=== PATIENT | female | born 1950 | race Hispanic/Latino ===

== ENCOUNTER 2020-04-06 20:57 | Emergency (ER) | payer OTHER ==
[2020-04-06 21:59] LABS: Absolute Lymphocytes (CBC) 2.2 K/uL (0.7-4.9); Basophils % 0.6 % (0-1.3); Hematocrit 34.2 % (36.0-45.0); Lymphocytes % 22.4 % (15.3-44.8); MPV 8.2 fL (7.6-11.3)
[2020-04-06] MEDS ORDERED: MORPHINE 4 MG/ML SYR ONE (22:08)
[2020-04-06] MEDS ORDERED: ONDANSETRON 4 MG/2 ML VIAL ONE (22:08)
[2020-04-06 22:14] LABS: Urine Bacteria <20 /HPF (<20); Urine Culture Reflex Order NOT NEEDED; Urine RBC <5 /HPF (NONE SEEN)
[2020-04-06] MEDS ORDERED: FENTANYL CITR 100 MCG/2 ML ONE (22:15)
[2020-04-06 22:17] LABS: Urine Blood TRACE (NEG); Urine Glucose NEGATIVE (NEG); Urine Protein TRACE (NEG); Urine Specific Gravity 1.015 (1.005-1.030)
[2020-04-06 22:17] LABS: ALT/SGPT 12 U/L (12-78); AST/SGOT 9 U/L (15-37); Albumin 3.7 g/dL (3.4-5.0); Alkaline Phosphatase 76 U/L (45-117); BUN Blood Urea Nitrogen 20 mg/dL (7-18); Bicarbonate 26 mmol/L (21-32); Bilirubin Direct < 0.1 mg/dL (0-0.2); Bilirubin Total 0.3 mg/dL (0.2-1.0); Glucose Level 154 mg/dL (74-106); Lipase 203 U/L (73-393); Potassium 3.7 mmol/L (3.5-5.1); Protein, Total 7.6 g/dL (6.4-8.2); Sodium Level 139 mmol/L (136-145)
[2020-04-06] MEDS ORDERED: NA CHLORIDE 0.9% 500 ML ONE (22:17)
[2020-04-06] MEDS ORDERED: CIPROFLOXACIN HCL 500 MG TAB ONE (23:28)
[2020-04-06] MEDS ORDERED: METRONIDAZOLE 500mg IVPB 500 MG/100 ML BAG IV ONE (23:28)
--- NOTE | 2020-04-06 23:50 | ER ---
Nurse's Notes [facility] Name: Anum Burr Age: 70 yrs Sex: Female : 1950 Arrival Date: 04/06/2020 Time: 21:03 Bed 20 Private MD: Mindy Flores Diagnosis: Diverticulitis of large intestine without perforation or abscess without bleeding Presentation: 04/06 21:15 Chief complaint: Patient states: Suprapubic and LLQ pain since Sunday, pain radiates ca1 to the L leg. Pain increases with repositioning and urination. Denies injury. Denies burning with urination, urinary frequency and urgency. Denies N/V/D. Coronavirus screen: Client denies travel out of the [place] in the last 14 days. At this time, the client does not indicate any symptoms associated with coronavirus-19. Ebola Screen: Patient negative for fever greater than or equal to 101.5 degrees Fahrenheit, and additional compatible Ebola Virus Disease symptoms Patient denies exposure to infectious person. Patient denies travel to an Ebola-affected area in the 21 days before illness onset. No symptoms or risks identified at this time. Initial Sepsis Screen: Does the patient meet any 2 criteria? No. Patient's initial sepsis screen is negative. Does the patient have a suspected source of infection? No. Patient's initial sepsis screen is negative. Risk Assessment: Do you want to hurt yourself or someone else? Patient reports no desire to harm self or others. Onset of symptoms was April 06, 2020. 21:15 Method Of Arrival: Ambulatory ca1 21:15 Acuity: SRINIVASA 3 ca1 Historical: - Allergies: 21:18 PENICILLINS; ca1 - PMHx: 21:18 Diabetes - NIDDM; High Cholesterol; Hypertension; ca1 - PSHx: 21:18 Cholecystectomy; ca1 - Immunization history:: Adult Immunizations up to date. - Social history:: Smoking status: Patient denies any tobacco usage or history of. Screenin:19 Abuse screen: Denies threats or abuse. Nutritional screening: No deficits noted. fu Tuberculosis screening: No symptoms or risk factors identified. Fall Risk None identified. Assessment: 21:25 General: Appears in no apparent distress. Behavior is calm, cooperative, appropriate fu for age, Reports LLQ pain started 5 days ago. Pain: Complains of pain in left lower quadrant Pain radiates to left leg Pain currently is 10 out of 10 on a pain scale. Quality of pain is described as aching, Pain began 5 days ago Alleviated by Aggravated by walking. Neuro: Level of Consciousness is awake, alert, obeys commands, Oriented to person, place, time, situation, Moves all extremities. Gait is steady, Speech is normal, Facial symmetry appears normal. Cardiovascular: Denies chest pain, nausea, vomiting. Respiratory: Airway is patent Denies cough, shortness of breath. GI: Reports lower abdominal pain, Patient currently denies diarrhea, nausea, vomiting. : Reports frequency and burning sensation with urination. EENT: No signs and/or symptoms were reported regarding the EENT system. Derm: No signs and/or symptoms reported regarding the dermatologic system. Musculoskeletal: No signs and/or symptoms reported regarding the musculoskeletal system. 22:10 Reassessment: Patient and/or family updated on plan of care and expected duration. Pain fu level reassessed. patient refusing for Morphine IV stated makes her dizzy and did not work for her. PCP notified. 23:03 Reassessment: Patient and/or family updated on plan of care and expected duration. Pain fu level reassessed. Patient is alert, oriented x 3, equal unlabored respirations, skin warm/dry/pink. Patient denies pain at this time. Patient states feeling better. 23:25 Reassessment: Patient and/or family updated on plan of care and expected duration. Pain fu level reassessed. Patient is alert, oriented x 3, equal unlabored respirations, skin warm/dry/pink. assisted to restroom. 23:49 Reassessment: PCP patient's room, talking to the patient. fu Vital Signs: 21:15 Weight 67.13 kg (R); Height 4 ft. 9 in. (144.78 cm) (R); Pain 10/10; ca1 21:29 BP 179 / 61; Pulse 57; Resp 17; Temp 97.(TE); Pulse Ox 98% on R/A; Pain 10/10; fu 22:00 BP 179 / 63; Pulse 58; Resp 18; Pulse Ox 100% on R/A; Pain 10/10; fu 23:01 BP 158 / 52; Pulse 60; Resp 16; Pulse Ox 96% on R/A; Pain 0/10; fu 23:45 BP 155 / 2; Pulse 56; Resp 16; Temp 98.3; Pulse Ox 99% on R/A; Pain 0/10; fu 21:15 Body Mass Index 32.03 (67.13 kg, 144.78 cm) ca1 ED Course: 21:03 Patient arrived in ED. am2 21:04 Mindy Flores MD is Private Physician. am2 21:08 Darnell Galarza PA is PHCP. cp 21:08 Shahbaz Engle MD is Attending Physician. cp 21:09 Harris Piper, KAREEN is Primary Nurse. fu 21:17 Triage completed. ca1 21:18 Arm band placed on right wrist. ca1 21:40 Initial lab(s) drawn, by me, sent to lab. Inserted saline lock: 20 gauge in right fu antecubital area, using aseptic technique. Blood collected. 21:46 Lipase Sent. fu 21:46 Hepatic Function Sent. fu 21:46 CBC with Diff Sent. fu 21:46 Basic Metabolic Panel Sent. fu 21:46 Urine Microscopic Only Sent. fu 22:44 CT Abd/Pelvis - IV Contrast Only In Process Unspecified. EDMS 22:44 Patient has correct armband on for positive identification. Placed in gown. Bed in low fu position. Call light in reach. Side rails up X 1. 22:52 Pulse ox on. NIBP on. fu 23:25 provided with pillow. fu 04/07 00:00 No provider procedures requiring assistance completed. fu 00:04 IV discontinued, bleeding controlled, Pressure dressing applied. fu Administered Medications: 04/06 22:01 Not Given (Patient Refused): morphine 4 mg IVP once; RASS on ADMIN: Combtv4, Very cp Agttd3, Agttd2, Rstlss1, AlertClm0, Drwsy-1, Lt Sdtn-2, Mod Sdtn-3, Dp Sdtn-4, UnArsble-5 22:02 Drug: NS 0.9% 500 ml Route: IV; Rate: 500 ml/hr; Site: right antecubital; fu 23:24 Follow up: Response: No adverse reaction; IV Intake: 500ml fu 22:05 Drug: Zofran (Ondansetron) 4 mg Route: IVP; Infused Over: 2 mins; Site: right fu antecubital; 22:42 Follow up: Response: No adverse reaction fu 22:12 Drug: fentaNYL (PF) 25 mcg Route: IVP; Site: right antecubital; fu 22:42 Follow up: Response: Pain is decreased fu 23:20 Drug: Ciprofloxacin 500 mg Route: PO; fu 23:54 Follow up: Response: No adverse reaction fu 23:23 Drug: metroNIDAZOLE 500 mg Volume: 100 ml; Route: IVPB; Infused Over: 30 mins; Site: fu right antecubital; 23:54 Follow up: Response: No adverse reaction fu Intake: 23:24 IV: 500ml; Total: 500ml. fu Outcome: 23:49 Discharge ordered by MD. lane 04/07 00:06 Discharged to home ambulatory. fu Condition: good Discharge instructions given to patient, Instructed on discharge instructions, follow up and referral plans. Demonstrated understanding of instructions, follow-up care, Prescriptions given X 4. 00:07 Patient left the ED. fu Signatures: Dispatcher [employer] EDMS Darnell Galarza PA PA cp Moreno, Amanda 2 Harris Piper, RN RN fu Dominique Hernandez RN RN ca1
--- NOTE | 2020-04-06 23:50 | EDPHYS ---
Physician Documentation [facility] Name: Anum Burr Age: 70 yrs Sex: Female : 1950 Arrival Date: 04/06/2020 Time: 21:03 Bed 20 Private MD: Mindy Flores ED Physician Shahbaz Engle HPI: 04/06 21:30 This 70 yrs old Female presents to ER via Ambulatory with complaints of cp Abdominal Pain - left side. Historical: - Allergies: 21:18 PENICILLINS; ca1 - PMHx: 21:18 Diabetes - NIDDM; High Cholesterol; Hypertension; ca1 - PSHx: 21:18 Cholecystectomy; ca1 - Immunization history:: Adult Immunizations up to date. - Social history:: Smoking status: Patient denies any tobacco usage or history of. ROS: 21:49 Eyes: Negative for injury, pain, redness, and discharge. cp 21:49 Constitutional: Negative for body aches, fever, poor PO intake. 21:49 ENT: Negative for ear pain, sore throat, difficulty swallowing, difficulty handling secretions. 21:49 Cardiovascular: Negative for chest pain. 21:49 Respiratory: Negative for cough, shortness of breath, wheezing. 21:49 Abdomen/GI: Positive for abdominal pain, Negative for vomiting, diarrhea, constipation, anorexia, black/tarry stool, rectal bleeding. 21:49 Back: Negative for radiated pain. 21:49 : Negative for urinary symptoms. 21:49 All other systems are negative. Exam: 21:50 Head/Face: Normocephalic, atraumatic. cp 21:50 Constitutional: The patient appears in no acute distress, alert, awake, non-diaphoretic, non-toxic, well developed, well nourished. 21:50 Eyes: Periorbital structures: appear normal, Conjunctiva: normal, no exudate, no injection, Sclera: no appreciated abnormality, Lids and lashes: appear normal, bilaterally. 21:50 ENT: External ear(s): are unremarkable, Nose: is normal, Posterior pharynx: Airway: no evidence of obstruction, patent. 21:50 Chest/axilla: Inspection: normal. 21:50 Cardiovascular: Rate: bradycardic, Edema: is not appreciated, JVD: is not appreciated. 21:50 Respiratory: the patient does not display signs of respiratory distress, Respirations: normal, no use of accessory muscles, no retractions, labored breathing, is not present, Breath sounds: are clear throughout, no decreased breath sounds. 21:50 Abdomen/GI: Inspection: abdomen appears normal, Bowel sounds: active, all quadrants, Palpation: soft, in all quadrants, moderate abdominal tenderness, in the left upper quadrant and left lower quadrant, rebound tenderness, is not appreciated, voluntary guarding, is elicited in the left upper quadrant and left lower quadrant. 21:50 Back: pain, is absent. Vital Signs: 21:15 Weight 67.13 kg (R); Height 4 ft. 9 in. (144.78 cm) (R); Pain 10/10; ca1 21:29 BP 179 / 61; Pulse 57; Resp 17; Temp 97.(TE); Pulse Ox 98% on R/A; Pain 10/10; fu 22:00 BP 179 / 63; Pulse 58; Resp 18; Pulse Ox 100% on R/A; Pain 10/10; fu 23:01 BP 158 / 52; Pulse 60; Resp 16; Pulse Ox 96% on R/A; Pain 0/10; fu 23:45 BP 155 / 2; Pulse 56; Resp 16; Temp 98.3; Pulse Ox 99% on R/A; Pain 0/10; fu 21:15 Body Mass Index 32.03 (67.13 kg, 144.78 cm) ca1 MDM: 21:22 Patient medically screened. cp 21:53 Differential diagnosis: diverticulitis, GI Bleed, non-specific abd pain, cp Pyelonephritis, Ureterolithiasis, urinary tract infection. 23:47 Data reviewed: vital signs, nurses notes, lab test result(s), radiologic studies, CT cp scan. Counseling: I had a detailed discussion with the patient and/or guardian regarding: the historical points, exam findings, and any diagnostic results supporting the discharge/admit diagnosis, lab results, radiology results, the need for outpatient follow up, an room attendant, to return to the emergency department if symptoms worsen or persist or if there are any questions or concerns that arise at home. Response to treatment: the patient's symptoms have markedly improved after treatment, Pain markedly improved and patient tolerating po fluids. Will discharge to home for continued monitoring. 04/06 21:30 Order name: Basic Metabolic Panel; Complete Time: 22:46 cp 04/06 22:47 Interpretation: Normal except: GLUC 154; BUN 20; GFR 53. cp 04/06 21:30 Order name: CBC with Diff; Complete Time: 22:46 cp 04/06 22:47 Interpretation: Normal except: HGB 11.9; HCT 34.2. cp 04/06 21:30 Order name: Hepatic Function; Complete Time: 22:46 cp 04/06 21:30 Order name: Lipase; Complete Time: 22:46 cp 04/06 21:30 Order name: Urine Microscopic Only; Complete Time: 22:46 cp 04/06 21:59 Order name: Urine Dipstick--Ancillary (enter results); Complete Time: 22:46 mw2 04/06 21:30 Order name: IV Saline Lock; Complete Time: 21:46 cp 04/06 21:30 Order name: CT Abd/Pelvis - IV Contrast Only cp 04/06 21:30 Order name: Labs collected and sent; Complete Time: 23:54 cp 04/06 21:30 Order name: Urine Dipstick-Ancillary (obtain specimen); Complete Time: 21:46 cp 04/06 21:30 Order name: NPO; Complete Time: 23:11 cp 04/06 23:11 Order name: PO challenge; Complete Time: 23:23 cp Administered Medications: 22:01 Not Given (Patient Refused): morphine 4 mg IVP once; RASS on ADMIN: Combtv4, Very cp Agttd3, Agttd2, Rstlss1, AlertClm0, Drwsy-1, Lt Sdtn-2, Mod Sdtn-3, Dp Sdtn-4, UnArsble-5 22:02 Drug: NS 0.9% 500 ml Route: IV; Rate: 500 ml/hr; Site: right antecubital; fu 23:24 Follow up: Response: No adverse reaction; IV Intake: 500ml fu 22:05 Drug: Zofran (Ondansetron) 4 mg Route: IVP; Infused Over: 2 mins; Site: right fu antecubital; 22:42 Follow up: Response: No adverse reaction fu 22:12 Drug: fentaNYL (PF) 25 mcg Route: IVP; Site: right antecubital; fu 22:42 Follow up: Response: Pain is decreased fu 23:20 Drug: Ciprofloxacin 500 mg Route: PO; fu 23:54 Follow up: Response: No adverse reaction fu 23:23 Drug: metroNIDAZOLE 500 mg Volume: 100 ml; Route: IVPB; Infused Over: 30 mins; Site: right antecubital; 23:54 Follow up: Response: No adverse reaction fu Disposition: 04/07 00:09 Co-signature as Attending Physician, Shahbaz Engle MD. rn Disposition: 04/06/20 23:49 Discharged to Home. Impression: Diverticulitis of large intestine without perforation or abscess without bleeding. - Condition is Stable. - Discharge Instructions: High-Fiber Diet, Diverticulitis. - Prescriptions for Zofran 4 mg Oral Tablet - take 1 tablet by ORAL route every 12 hours As needed; 20 tablet. Cipro 500 mg Oral Tablet - take 1 tablet by ORAL route every 12 hours for 7 days; 14 tablet. Metronidazole 500 mg Oral Tablet - take 1 tablet by ORAL route every 8 hours; 30 tablet. Tramadol 50 mg Oral Tablet - take 1 tablet by ORAL route every 8 hours as needed; 12 tablet. - Medication Reconciliation Form, Thank You Letter, Antibiotic Education, Prescription Opioid Use form. - Follow up: Private Physician; When: 1 - 2 days; Reason: Recheck today's complaints. - Problem is new. - Symptoms have improved. Signatures: Dispatcher [employer] EDShahbaz Thurman MD MD rn Page, Corey, PA PA cp Umadhay, Felix, RN RN fu Acob, Cheryl, RN RN [facility] Corrections: (The following items were deleted from the chart) 00:07 04/06 23:49 04/06/2020 23:49 Discharged to Home. Impression: Diverticulitis of large fu intestine without perforation or abscess without bleeding. Condition is Stable. Forms are Medication Reconciliation Form, Thank You Letter, Antibiotic Education, Prescription Opioid Use. Follow up: Private Physician; When: 1 - 2 days; Reason: Recheck today's complaints. Problem is new. Symptoms have improved. cp
[2020-04-07 00:45] VITALS: BP 155/2; TEMP 98.3; O2SAT 99
--- NOTE | 2020-04-07 11:05 | RAD REPORT ---
EXAM DESCRIPTION: CT ABDOMEN AND PELVIS WITH CONTRAST CLINICAL HISTORY: Left side abdominal pain COMPARISON: 07/16/2017 TECHNIQUE: CT of the abdomen and pelvis performed following IV administration of iodinated contras t. FINDINGS: Lung Bases: The visualized lung bases are clear. Bones: Multilevel degenerative endplate spondylosis. Abdomen: Liver: The liver has normal size and density. No intrahepatic biliary dilatation. Gallbladder: Prior cholecystectomy. Spleen, Pancreas, and Adrenal Glands: The spleen, pancreas, and adrenal glands are unremarkable. Kidneys: No hydronephrosis or obstructing calculus. Vasculature: Aortoiliac atherosclerosis. IVC is unremarkable. The portal vein is patent. The proxim al visceral and renal arteries are patent. Stomach: Small hiatal hernia. Other: No free intraperitoneal air. No free fluid or lymphadenopathy. Pelvis: Bladder: Urinary bladder is unremarkable. Bowel: No dilated loops of large or small bowel. Scattered diverticula colon. Inflammatory changes centered on a diverticula of the proximal sigmoid colon with short segment wall thickening. No well-c ircumscribed pericolic fluid collection. Appendix: Normal appendix. Pelvis: Uterus is not enlarged. IMPRESSION: 1. Findings compatible with acute uncomplicated diverticulitis of the sigmoid colon. 2. Small hiatal hernia. This exam was performed according to our departmental dose-optimization program, which includes autom ated exposure control, adjustment of the mA and/or kV according to patient size and/or use of iterati ve reconstruction technique. Electronically signed by: Emil Causey 04/06/2020 11:03 PM CDT Due to temporary technical issues with the PACS/Fluency reporting system, reports are being signed by the in house radiologist without review as a courtesy to ensure prompt reporting. The interpreting r adiologist is fully responsible for the content of the report.
== END 2020-04-07 00:07 | disposition home or self-care (01) ==
LOC: ER 20:57
DX: K57.32 Diverticulitis of large intestine without perforation or abscess without bleeding (principal); I10 Essential (primary) hypertension; Z88.0 Allergy status to penicillin
CPT/HCPCS: 85025; 80048; 36415; 80076; 83690; 74177; Q9967; J3010; J7040; J2405; 81003; 81015; 96374; 96375; 99284

== ENCOUNTER 2020-11-05 08:40 | Emergency (ER) | payer OTHER ==
--- NOTE | 2020-11-05 09:44 | RAD REPORT ---
EXAM DESCRIPTION: CT - [id number] - 11/05/2020 9:21 am CLINICAL HISTORY: Trauma, head and neck injury. PAIN COMPARISON: No comparisons TECHNIQUE: Axial 5 mm thick images of the head were obtained. Axial 2 mm thick images of the cervical spine were obtained with sagittal and coronal reconstruction images generated and reviewed. All CT scans are performed using dose optimization technique as appropriate and may include automated exposure control or mA/KV adjustment according to patient size. FINDINGS: CT HEAD WITHOUT CONTRAST: No acute hemorrhage, hydrocephalus or extra-axial collection is identified.No areas of brain edema or midline shift. The paranasal sinuses and mastoids are clear.The calvarium is intact. CT CERVICAL SPINE WITHOUT CONTRAST: No fracture or subluxation.No prevertebral soft tissues swelling is identified. IMPRESSION: No acute intracranial or cervical spine findings.
--- NOTE | 2020-11-05 09:52 | ER ---
Nurse's Notes [facility] Name: Anum Burr Age: 70 yrs Sex: Female : 1950 Arrival Date: 11/05/2020 Time: 08:49 Bed 28 Private MD: Diagnosis: Bitten by dog;Superficial injury of head;Abrasion of right forearm Presentation: 11/05 08:49 Chief complaint: Patient states: Pt presents to ER via [facility]. Pt was bite by kg neighbors dog. It did knock her down and she hit her head. Denies LOC. Coronavirus screen: Client denies travel out of the [place] in the last 14 days. Ebola Screen: Patient negative for fever greater than or equal to 101.5 degrees Fahrenheit, and additional compatible Ebola Virus Disease symptoms. Initial Sepsis Screen: Does the patient meet any 2 criteria? No. Patient's initial sepsis screen is negative. Does the patient have a suspected source of infection? No. Patient's initial sepsis screen is negative. Risk Assessment: Do you want to hurt yourself or someone else? Patient reports no desire to harm self or others. Onset of symptoms was November 05, 2020 at 08:00. 08:49 Method Of Arrival: EMS: [facility] kg 08:49 Acuity: SRINIVASA 3 kg Triage Assessment: 08:57 General: Appears in no apparent distress. Behavior is calm, cooperative, appropriate kg for age, quiet. Pain: Complains of pain in right cheek, right ear, right jaw, scalp and right arm Pain does not radiate. Pain currently is 10 out of 10 on a pain scale. at worst was 10 out of 10 on a pain scale. level that patient reports is acceptable is 5 out of 10 on a pain scale. Quality of pain is described as aching, throbbing, Pain began 1 hour ago. Historical: - Allergies: 08:57 PENICILLINS; kg - Immunization history:: Last tetanus immunization: > 10 years ago Flu vaccine is up to date. - Social history:: Smoking status: Patient denies any tobacco usage or history of. Screenin:04 Abuse screen: Denies threats or abuse. Nutritional screening: No deficits noted. kg Tuberculosis screening: No symptoms or risk factors identified. Fall Risk Fall in past 12 months (25 points). No secondary diagnosis (0 pts). No IV (0 pts). Ambulatory Aid- None/Bed Rest/Nurse Assist (0 pts). Gait- Normal/Bed Rest/Wheelchair (0 pts) Mental Status- Oriented to own ability (0 pts). Total Zuniga Fall Scale indicates No Risk (0-24 pts). Assessment: 09:00 General: Appears in no apparent distress. Behavior is calm, cooperative, appropriate kg for age, quiet. Pain: Complains of pain in scalp and right arm Pain currently is 10 out of 10 on a pain scale. at worst was 10 out of 10 on a pain scale. level that patient reports is acceptable is 5 out of 10 on a pain scale. Quality of pain is described as aching, throbbing. Neuro: No deficits noted. Level of Consciousness is awake, alert, obeys commands, Oriented to person, place, time, situation, Appropriate for age Machine Group Leader are equal bilaterally Moves all extremities. Gait is steady, Speech is normal, Facial symmetry appears normal, Pupils are PERRLA, Hematoma to back of head. Cardiovascular: No deficits noted. Respiratory: No deficits noted. GI: No deficits noted. : No deficits noted. EENT: No deficits noted. Derm: Wound noted right cheek Wound is laceration to right forearm and right cheek. Dried blood noted, no active bleeding. Injury Description: Laceration is not bleeding, was sustained 1-2 hours ago. a small amount of bleeding noted at this time. Puncture. Vital Signs: 08:49 BP 167 / 55; Pulse 65; Resp 17; Temp 98.3; Pulse Ox 100% on R/A; Weight 63.5 kg; Height kg 4 ft. 9 in. (144.78 cm); Pain 10/10; 08:49 BP 167 / 55; Pulse 65; Resp 18; Temp 98.3; Pulse Ox 100% ; Weight 63.5 kg; Height 4 ft. kg 9 in. (144.78 cm); Pain 10/10; 09:30 BP 153 / 70; Pulse 59; Resp 18; Pulse Ox 99% on R/A; kg 08:49 Body Mass Index 30.30 (63.50 kg, 144.78 cm) kg ED Course: 08:49 Patient arrived in ED. aa5 08:49 Shirley Branch is Primary Nurse. kg 08:50 Arm band placed on left wrist. kg 08:51 Triage completed. kg 09:02 Laina Carrillo FNP-C [facility]. kb 09:02 Darnell Hollingsworth MD is Attending Physician. kb 09:04 Patient has correct armband on for positive identification. Allergy band placed. Bed in kg low position. Call light in reach. Side rails up X 1. 09:21 CT Head C Spine In Process Unspecified. EDMS 10:36 Dressings: 4X4s X 1; right arm X 4; face. kg 10:36 No provider procedures requiring assistance completed. Patient did not have IV access kg during this emergency room visit. Administered Medications: 09:48 Drug: Tetanus-Diphtheria Toxoid Adult 0.5 ml {[place]: Private.Me. Exp: kg 12/12/2021. Lot #: [id number]. } Route: IM; Site: left deltoid; 10:39 Follow up: Response: No adverse reaction kg 09:48 Drug: [place] (HYDROcodone-acetaminophen) (7.5 mg-325 mg) 1 tabs Route: PO; kg 10:39 Follow up: Response: No adverse reaction; Pain is decreased kg Outcome: 09:51 Discharge ordered by . kb 10:37 Discharged to home ambulatory. kg 10:37 Condition: good 10:37 Discharge instructions given to patient, family, Instructed on discharge instructions, follow up and referral plans. Demonstrated understanding of instructions, follow-up care, medications, wound care, Prescriptions given X 1. 10:40 Patient left the ED. kg Signatures: Dispatcher [employer] EDMS Laina Carrillo FNP-C FNP-Ckb Calderon, Audri RN RN aa5 Shirley Branch kg
--- NOTE | 2020-11-05 09:52 | EDPHYS ---
Physician Documentation [facility] Name: Anum Burr Age: 70 yrs Sex: Female : 1950 Arrival Date: 11/05/2020 Time: 08:49 Bed 28 Private MD: ED Physician Darnell Hollingsworth HPI: 11/05 09:47 This 70 yrs old Female presents to ER via EMS with complaints of dog bite. kb 09:47 The patient was bitten on the right cheek, by a dog, as a result of being attacked by kb the animal, at home. Onset: The symptoms/episode began/occurred just prior to arrival. Animal information: The animal was reported to appear healthy. is unknown, The animal is known and can be quarantined, Animal control has been notified. Secondary to the bite the patient reports an abrasion, multiple puncture wounds, that are superficial. Associated signs and symptoms: Pertinent positives: pain at site. Severity of symptoms: At their worst the symptoms were mild, in the emergency department the symptoms are unchanged. The patient has not experienced similar symptoms in the past. The patient has not recently seen a physician. Pt was trying to get into her apt door when the neighbor let his dogs out and they attacked pt. Bit pt on right side of face causing abrasion with small puncture wound. Dog caused the pt to fall backwards and hit head causing hematoma. No LOC, AMS, n/v, headache, dizziness. . Historical: - Allergies: 08:57 PENICILLINS; kg - Immunization history:: Last tetanus immunization: > 10 years ago Flu vaccine is up to date. - Social history:: Smoking status: Patient denies any tobacco usage or history of. ROS: 09:43 Constitutional: Negative for fever, chills, and weight loss, Respiratory: Negative for kb shortness of breath, cough, wheezing, and pleuritic chest pain, Neuro: Negative for headache, weakness, numbness, tingling, and seizure. 09:43 MS/extremity: Positive for abrasion, of the right forearm. 09:43 Skin: Positive for of the right cheek, dog bite. Exam: 09:43 Constitutional: This is a well developed, well nourished patient who is awake, alert, kb and in no acute distress. Respiratory: Respirations even and unlabored. No increased work of breathing, no retractions or nasal flaring. MS/ Extremity: Pulses equal, no cyanosis. Neurovascular intact. Full, normal range of motion. Neuro: Awake and alert, GCS 15, oriented to person, place, time, and situation. Moves all extremities. Normal gait. 09:43 Head/face: Noted is no obvious of injury or deformity except hematoma, that is moderate, of the left side of the back of head, dog bite right cheek. 09:43 Skin: injury, bite(s), superficial, of the right cheek. 09:43 Skin: injury, abrasion(s), small abrasion noted, of the right forearm. Vital Signs: 08:49 BP 167 / 55; Pulse 65; Resp 17; Temp 98.3; Pulse Ox 100% on R/A; Weight 63.5 kg; Height kg 4 ft. 9 in. (144.78 cm); Pain 10/10; 08:49 BP 167 / 55; Pulse 65; Resp 18; Temp 98.3; Pulse Ox 100% ; Weight 63.5 kg; Height 4 ft. kg 9 in. (144.78 cm); Pain 10/10; 09:30 BP 153 / 70; Pulse 59; Resp 18; Pulse Ox 99% on R/A; kg 08:49 Body Mass Index 30.30 (63.50 kg, 144.78 cm) kg MDM: 09:02 Patient medically screened. kb 09:41 Data reviewed: vital signs, nurses notes. Data interpreted: Pulse oximetry: on room air kb is 100 %. Interpretation: normal. 09:50 Counseling: I had a detailed discussion with the patient and/or guardian regarding: the kb historical points, exam findings, and any diagnostic results supporting the discharge/admit diagnosis, radiology results, the need for outpatient follow up, a family practitioner, to return to the emergency department if symptoms worsen or persist or if there are any questions or concerns that arise at home. 11/05 09:07 Order name: CT Head C Spine; Complete Time: 09:50 kb 11/05 09:08 Order name: Wound Care; Complete Time: 10:39 kb Administered Medications: 09:48 Drug: Tetanus-Diphtheria Toxoid Adult 0.5 ml {Radiator Tester: [employer]. Exp: kg 12/12/2021. Lot #: [id number]. } Route: IM; Site: left deltoid; 10:39 Follow up: Response: No adverse reaction kg 09:48 Drug: [place] (HYDROcodone-acetaminophen) (7.5 mg-325 mg) 1 tabs Route: PO; kg 10:39 Follow up: Response: No adverse reaction; Pain is decreased kg Disposition: 11/06 07:58 Co-signature as Attending Physician, Darnell Hollingsworth MD I agree with the assessment and mahad plan of care. Disposition: 11/05/20 09:51 Discharged to Home. Impression: Bitten by dog, Superficial injury of head, Abrasion of right forearm. - Condition is Stable. - Discharge Instructions: Animal Bite, Uohh-kl-Hlyd, Hematoma, Gcod-ny-Kraf, Head Injury, Adult, Tnsz-po-Wrwh. - Prescriptions for Doxycycline Hyclate 100 mg Oral Tablet - take 1 tablet by ORAL route every 12 hours for 7 days; 14 tablet. - Medication Reconciliation Form, Thank You Letter, Antibiotic Education, Prescription Opioid Use, Work release form form. - Follow up: Emergency Department; When: As needed; Reason: Worsening of condition. Follow up: Private Physician; When: 2 - 3 days; Reason: Recheck today's complaints, Continuance of care, Re-evaluation by your physician. Signatures: Dispatcher [employer] EDLaina Bob, TANK TENDER-C TANK TENDER-Darnell Best MD MD cha Graham, Kristen kg Corrections: (The following items were deleted from the chart) 11/05 10:40 09:51 11/05/2020 09:51 Discharged to Home. Impression: Bitten by dog; Superficial kg injury of head; Abrasion of right forearm. Condition is Stable. Discharge Instructions: Animal Bite, Fucz-hr-Kmwh, Hematoma, Yipn-ka-Cpmb, Head Injury, Adult, Nwzf-pl-Kmzr. Prescriptions for Doxycycline Hyclate 100 mg Oral Tablet - take 1 tablet by ORAL route every 12 hours for 7 days; 14 tablet. and Forms are Medication Reconciliation Form, Thank You Letter, Antibiotic Education, Prescription Opioid Use. Follow up: Emergency Department; When: As needed; Reason: Worsening of condition. Follow up: Private Physician; When: 2 - 3 days; Reason: Recheck today's complaints, Continuance of care, Re-evaluation by your physician. kb
[2020-11-05] MEDS ORDERED: TETANUS & DIPHTHERIA TOX,ADULT 0.5 ML VIAL ONE (10:02)
[2020-11-05] MEDS ORDERED: HYDROCODONE/APAP 7.5/325 MG TAB ONE (10:02)
[2020-11-05 10:45] VITALS: TEMP 98.3
[2020-11-05 10:46] VITALS: BP 153/70; O2SAT 99
== END 2020-11-05 10:40 | disposition home or self-care (01) ==
LOC: ER 08:40
DX: S00.81XA Abrasion of other part of head, initial encounter (principal); S50.811A Abrasion of right forearm, initial encounter; W54.0XXA Bitten by dog, initial encounter; Y92.007 Garden or yard of unspecified non-institutional (private) residence as the place of occurrence of the external cause; Z23 Encounter for immunization
CPT/HCPCS: 70450; 72125; 90471; 90714; 99284

== ENCOUNTER 2021-12-12 13:56 | Emergency (ER) | payer OTHER ==
[2021-12-12] MEDS ORDERED: ACETAMIN/CAFFEINE/BUTALB TAB PO ONE (14:55)
--- NOTE | 2021-12-12 15:00 | RAD REPORT ---
EXAM DESCRIPTION: CT - Head Brain Wo Cont - 12/12/2021 2:49 pm CLINICAL HISTORY: Headache, new or worsening.Patient reports pain primarily in the left-side as well as ear pain COMPARISON: HEAD BRAIN W O CONTRAST dated 04/27/2013 TECHNIQUE: Axial 5 mm thick images of the head were obtained without IV contrast. All CT scans are performed using dose optimization technique as appropriate and may include automated exposure control or mA/KV adjustment according to patient size. FINDINGS: No intracranial hemorrhage, mass, edema or shift of mid-line structures. No acute infarcti on changes seen. No abnormal extra-axial fluid collections. Ventricles are normal. Normal variant cav um septum pellucidum present unchanged. Minimal, stable atrophy changes are present. Minimal patchy c hronic ischemic change in the cerebral white matter also stable. Mastoid air cells and visualized portions of the paranasal sinuses are clear. No acute bony findings. IMPRESSION: Negative non-contrast CT head examination for acute or significant finding No significant changes from the 2013 study.
--- NOTE | 2021-12-12 15:04 | ER ---
Nurse's Notes [facility] Name: Anum Burr Age: 71 yrs Sex: Female : 1950 Arrival Date: 12/12/2021 Time: 13:57 Bed 11 Private MD: Diagnosis: Headache Presentation: 12/12 14:27 Chief complaint: Patient states: Pain on the left side of the head that started 2 days ww ago. When she turns her head her left ear hurts. Coronavirus screen: Client denies travel out of the [place] in the last 14 days. Ebola Screen: Patient denies travel to an Ebola-affected area in the 21 days before illness onset. Initial Sepsis Screen: Does the patient meet any 2 criteria? No. Patient's initial sepsis screen is negative. Does the patient have a suspected source of infection? No. Patient's initial sepsis screen is negative. Risk Assessment: Do you want to hurt yourself or someone else? Patient reports no desire to harm self or others. Onset of symptoms is unknown. 14:27 Method Of Arrival: Ambulatory ww 14:27 Acuity: SRINIVASA 4 ww Triage Assessment: 14:28 Headache History: Denies prior headaches. General: Appears uncomfortable, Behavior is ww cooperative. Pain: Complains of pain in left side of the back of head, left temporal area, left occipital area, left ear and left base of the skull. Historical: - Allergies: 14:28 PENICILLINS; ww - PMHx: 14:28 Diabetes mellitus; Hypertensive disorder; ww - Immunization history:: Adult Immunizations up to date. - Social history:: Smoking status: Patient denies any tobacco usage or history of. Screenin:19 Abuse screen: Denies threats or abuse. Denies injuries from another. Nutritional ww screening: No deficits noted. Tuberculosis screening: No symptoms or risk factors identified. Fall Risk None identified. Vital Signs: 14:27 BP 145 / 68; Pulse 64; Resp 18; Temp 97.7; Pulse Ox 100% ; Weight 61.69 kg; Height 4 ww ft. 9 in. (144.78 cm); Pain 6/10; 14:27 Body Mass Index 29.43 (61.69 kg, 144.78 cm) ww Negrita Coma Score: 14:37 Eye Response: spontaneous(4). Verbal Response: oriented(5). Motor Response: obeys en commands(6). Total: 15. ED Course: 13:57 Patient arrived in ED. as 14:23 Rose Martinez PA is PHCP. en 14:23 Shahbaz Engle MD is Attending Physician. en 14:28 Triage completed. ww 14:28 Arm band placed on right wrist. ww 14:51 CT Head Brain wo Cont In Process Unspecified. EDMS 15:03 Javi Flores MD is Referral Physician. en 15:19 Patient has correct armband on for positive identification. ww 15:19 No provider procedures requiring assistance completed. Patient did not have IV access ww during this emergency room visit. Administered Medications: 14:53 Drug: Fioricet - Esgic 325 mg-40 mg-50 mg 1 tab-caps Route: PO; ww Outcome: 15:03 Discharge ordered by MD. en 15:19 Discharged to home ambulatory. ww 15:19 Condition: stable 15:19 Discharge instructions given to patient, Instructed on discharge instructions, the need for admit, medication usage, safety practices, Demonstrated understanding of instructions, follow-up care, medications, Prescriptions given X 2. 15:19 Patient left the ED. ww Signatures: Dispatcher [employer] EDMS Carissa Delatorre Whitney, RN RN ww Rose Martinez PA PA en
--- NOTE | 2021-12-12 15:04 | EDPHYS ---
Physician Documentation [facility] Name: Anum Burr Age: 71 yrs Sex: Female : 1950 Arrival Date: 12/12/2021 Time: 13:57 Bed 11 Private MD: ED Physician Shahbaz Engle HPI: 12/12 14:34 This 71 yrs old Female presents to ER via Ambulatory with complaints of en Headache. 14:34 -year-old female with history of hypertension, diabetes presents to ED with left-sided en parietal headache by 2 days. She describes it as constant and throbbing. She also reports associated left ear pain with lateral rotation of her head. No tenderness or drainage. She denies fever, chills, nausea, vomiting. No vision changes. No numbness, tingling, weakness. No difficulty with speech or vision changes.. Historical: - Allergies: 14:28 PENICILLINS; ww - PMHx: 14:28 Diabetes mellitus; Hypertensive disorder; ww - Immunization history:: Adult Immunizations up to date. - Social history:: Smoking status: Patient denies any tobacco usage or history of. ROS: 14:34 Constitutional: Negative for fever, chills, and weight loss. en 14:34 Eyes: Negative for blurry vision, photophobia, vision loss, visual disturbance. 14:34 ENT: Positive for ear pain, Negative for drainage from ear(s), hearing loss, tinnitus. 14:34 Neck: Negative for pain with movement, pain at rest. 14:34 Cardiovascular: Negative for chest pain, edema. 14:34 Respiratory: Negative for cough, shortness of breath. 14:34 Abdomen/GI: Negative for nausea, vomiting, and diarrhea. 14:34 MS/extremity: Negative for injury or acute deformity. 14:34 Skin: Negative for rash. 14:34 Neuro: Positive for headache, Negative for dizziness, gait disturbance, loss of consciousness, numbness, speech changes, tingling, visual changes, weakness. 14:34 All other systems are negative. Exam: 14:34 Constitutional: This is a well developed, well nourished patient who is awake, alert, en and in no acute distress. 14:37 Constitutional: The patient appears in no acute distress, alert, awake. en 14:37 Head/face: Sinus tenderness, is not appreciated. 14:37 Eyes: Pupils: equal, round, and reactive to light and accomodation, Extraocular movements: no acute changes, Conjunctiva: normal, no exudate, no injection. 14:37 ENT: External ear(s): are unremarkable, Ear canal(s): are normal, TM's: no acute changes, Nose: is normal, Mouth: Lips: moist, Oral mucosa: pink and intact, moist, Posterior pharynx: Airway: patent. 14:37 Neck: ROM/movement: Meningeal signs: are not present. 14:37 Cardiovascular: Rate: normal, Rhythm: regular, Pulses: no pulse deficits are appreciated, Heart sounds: normal, no murmur, no rub, no gallop. 14:37 Respiratory: the patient does not display signs of respiratory distress, Respirations: normal, Breath sounds: are clear throughout, no rales, rhonchi, no stridor, no wheezing. 14:37 Abdomen/GI: Inspection: abdomen appears normal, Bowel sounds: normal, in all quadrants, Palpation: abdomen is soft and non-tender, in all quadrants. 14:37 Back: pain, is absent, ROM is normal. 14:37 Musculoskeletal/extremity: ROM: intact in all extremities, full active range of motion. 14:37 Skin: no rash present. 14:37 Neuro: Orientation: appropriate for stated age, no acute changes, to person, place \T\ time. Mentation: appropriate for stated age, no acute changes, able to follow commands, Memory: appropriate for stated age, no acute changes, Cranial nerves: is grossly normal based on the patient's age, CN II- XII are normal as tested, Cerebellar function: is grossly normal based on the patient's age, no acute changes, Romberg testing is negative, normal finger to nose testing, able to perform alternating rapid hand movements, Motor: is grossly normal based on the patient's age, no acute changes, moves all fours, Sensation: no obvious gross deficits, appropriate Gait: is steady, Deep tendon reflexes are 2+ (normal) in the right bicep, right patellar, right Achilles, left bicep, left patellar and left Achilles. 14:37 Psych: Behavior/mood is pleasant, cooperative, Affect is flat. Vital Signs: 14:27 BP 145 / 68; Pulse 64; Resp 18; Temp 97.7; Pulse Ox 100% ; Weight 61.69 kg; Height 4 ww ft. 9 in. (144.78 cm); Pain 6/10; 14:27 Body Mass Index 29.43 (61.69 kg, 144.78 cm) ww Negrita Coma Score: 14:37 Eye Response: spontaneous(4). Verbal Response: oriented(5). Motor Response: obeys en commands(6). Total: 15. MDM: 14:37 Patient medically screened. en 14:37 Differential diagnosis: cluster headache, cerebral vascular accident, intracerebral en hemorrhage, migraine, neoplasm, sinusitis, subarachnoid bleed, tension headache, trigeminal neuralgia, vasomotor headache. Data reviewed: vital signs, nurses notes, radiologic studies, and as a result, I will Patient's exam is nonfocal. Will get CT imaging of head to rule out intracranial process. Will manage headache. Dissipate DC home if imaging negative.. 15:01 ED course: Pt with a negative CT of the head and a normal Neuro exam. Pt with tight en left cervical perispinal muscles, so Will d/c home with fioricet and robaxin for tension RODRIGUEZ. PCP f/u. ER return warnings reviewed... 12/12 14:33 Order name: CT Head Brain wo Cont; Complete Time: 15:01 en Administered Medications: 14:53 Drug: Fioricet - Esgic 325 mg-40 mg-50 mg 1 tab-caps Route: PO; ww Disposition: 17:40 Co-signature as Attending Physician, Shahbaz Engle MD. rn Disposition Summary: 12/12/21 15:03 Discharge Ordered Location: Home en Problem: new en Symptoms: have improved en Condition: Stable en Diagnosis - Headache en Followup: en - With: Javi Flores MD - When: As needed - Reason: Worsening of condition Discharge Instructions: - Discharge Summary Sheet en - General Headache Without Cause en Forms: - Medication Reconciliation Form en - Thank You Letter en - Antibiotic Education en - Prescription Opioid Use en Prescriptions: - Fioricet 50-300-40 mg Oral capsule - take 1 capsule by ORAL route every 4 hours as needed for headache; 20 capsule; en Refills: 0, Product Selection Permitted - methocarbamol 750 mg Oral Tablet - take 1 tablet by ORAL route 3 times per day; 15 tablet; Refills: 0, Product en Selection Permitted Signatures: Dispatcher [facility] Shahbaz Macias MD MD rn Wood, KAREEN Perez RN, Elizabeth, PA PA en Corrections: (The following items were deleted from the chart) 15:08 15:01 ED course: Pt with a negative CT of the head and a normal Neuro exam. Will d/c en home with fioricet and PCP f/u. ER return warnings reviewed.. en
[2021-12-12 15:24] VITALS: BP 145/68; TEMP 97.7; O2SAT 100
== END 2021-12-12 15:19 | disposition home or self-care (01) ==
LOC: ER 13:56
DX: R51.9 Headache, unspecified (principal); I10 Essential (primary) hypertension; E11.9 Type 2 diabetes mellitus without complications; Z88.0 Allergy status to penicillin
CPT/HCPCS: 70450; 99283

== ENCOUNTER 2024-04-09 06:46 | Day surgery (SDC) | payer MEDICARE ==
[2024-04-09] MEDS ORDERED: CEFAZOLIN SODIUM 2 GM/VIAL ONE (07:23)
--- NOTE | 2024-04-09 07:23 | RAD REPORT ---
Procedure: Chest Single View History: Preop Comparison: 2018 The lungs appear clear of acute infiltrate. No significant pleural effusion noted. The heart is normal size. IMPRESSION: No acute abnormality is displayed.
[2024-04-09] MEDS ORDERED: NA CHLORIDE 0.9% 1,000 ML ONE (07:24)
[2024-04-09] MEDS ORDERED: LIDOCAINE 2% MPF 5 ML VIAL ONE (07:29)
[2024-04-09] MEDS ORDERED: KETOROLAC 30 MG/ML INJ ONE (07:29)
[2024-04-09] MEDS ORDERED: ONDANSETRON 4 MG/2 ML VIAL ONE (07:29)
[2024-04-09 07:30] LABS: Absolute Basophils 0.1 K/uL (0-0.5); Absolute Eosinophils 0.4 K/uL (0-0.5); Absolute Monocytes 0.5 K/uL (0.1-1.3); Absolute Neutrophil 3.4 K/uL (1.8-8.0); Basophils % 1.4 % (0-1.3); Eosinophils % 5.7 % (0-4.4); Hematocrit 32.9 % (36.0-45.0); Hemoglobin 11.1 g/dL (12.0-15.0); Lymphocytes % 31.9 % (15.3-44.8); MCH 29.4 pg (27.0-35.0); MCHC 33.7 g/dL (32.0-36.0); MCV 87.4 fL (80-100); MPV 7.9 fL (7.6-11.3); Monocytes % 7.3 % (3.3-12.3); Neutrophils % 53.7 % (41.7-73.7); Platelets 239 thou/uL (152-406); RBC Red Blood Cell Count 3.77 M/uL (3.86-4.86); Red Cell Distribution Width 14.6 % (12.1-15.2)
[2024-04-09] MEDS ORDERED: FENTANYL CITR 100 MCG/2 ML ONE (07:30)
[2024-04-09] MEDS ORDERED: propofoL 200 MG/20 ML VIAL IV ONE (07:30)
[2024-04-09] MEDS ORDERED: BUPIVACAINE 0.5% PF 10 ML VIAL ONE (08:13)
[2024-04-09] MEDS ORDERED: NS 0.9% VIAL 20 ML ONE (09:14)
[2024-04-09] MEDS ORDERED: Mastisol Adhesive Liq ONE (09:28)
--- NOTE | 2024-04-09 09:56 | P.OP ---
Date of Service: 04/09/24 Preop diagnosis: Left forearm mass Postop diagnosis: Same Procedure performed: Wide excision left forearm mass 4 x 2 cm with layered c losure and frozen section Surgeon: Bandar Coon MD Tower Dragline Operator: Kerry RAMIREZ Estimated blood loss: Minimal Specimen: Left forearm mass Findings: Benign mass on frozen section Anesthesia: General Complications: None Drains: None Fluids and blood products: Nonapplicable Disposition: Recovery room Operative note: Patient brought to the OR and placed in supine position. General anesthesia began. Patient prepped and draped in usual sterile fashion. Marcaine 0.5% infiltrated locally. 15 blade used to make a 4 x 2 cm incision to the include there is 1.5 cm raised pleomorphic mass. Subcutaneous tissue divided and bleeding controlled cautery. Entire mass excised sent to pathology for frozen section. Frozen section revealed it to be a benign mass. Wound irrigated and bleeding controlled cautery. Flaps created. 4-0 chromic used to approximate subcutaneous tissue and close skin. Sterile dressing applied. Patient awakened and taken to recovery room in good general condition. CC: Dr. Garcia's office
[2024-04-09 10:54] VITALS: BP 157/55; TEMP 97.6; O2SAT 96
--- NOTE | 2024-04-09 12:55 | EKG ---
Test Date: 2024-04-09 Test Time: 07:32:16 Hand Stripper: GRANT MEASUREMENT RESULTS: Intervals: Rate: 52 KS: 140 QRSD: 80 QT: 458 QTc: 425 [place]: P: 39 KS: 140 QRS: -12 T: 47 INTERPRETIVE STATEMENTS: Sinus bradycardia Low voltage QRS Cannot rule out Anterior infarct, age undetermined Abnormal ECG Compared to ECG 07/30/2017 06:35:41 Myocardial infarct finding now present Electronically Signed On 04-09-24 12:53:52 CDT by Jovon Villarreal
== END 2024-04-09 10:55 | disposition home or self-care (01) ==
LOC: PRE 06:46 → OR 10:55
PROVIDERS: ATTEND Surgery
PROC: 0HBEXZZ Excision of Left Lower Arm Skin, External Approach (ICD-10-PCS; principal; 2024-04-09 09:00)
DX: C44.629 Squamous cell carcinoma of skin of left upper limb, including shoulder (principal); L57.0 Actinic keratosis; I10 Essential (primary) hypertension; E78.00 Pure hypercholesterolemia, unspecified; Z88.0 Allergy status to penicillin
CPT/HCPCS: 93005; 85025; 36415; 82947 ×2; 88331; 88332; 88305; 71045; 11604; A4216; J2704; J2001; J3010; J2405; J7030

== ENCOUNTER 2025-02-25 02:10 | Emergency (ER) | payer OTHER ==
[2025-02-25 03:17] LABS: Absolute Lymphocytes (CBC) 2.1 K/uL (0.7-4.9); Hematocrit 33.1 % (36.0-45.0); Hemoglobin 11.4 g/dL (12.0-15.0); MCH 29.5 pg (27.0-35.0); MCHC 34.4 g/dL (32.0-36.0); MCV 85.7 fL (80-100); MPV 8.2 fL (7.6-11.3); Nucleated RBC Absolute Count 0.0 (0-0); Nucleated Red Blood Cells % 0.1 % (0-0); RBC Red Blood Cell Count 3.86 M/uL (3.86-4.86); White Blood Count 7.80 thou/uL (4.3-10.9)
[2025-02-25 03:18] LABS: PT Prothrombin Time 12.0 SECONDS (10-13.0); Protime INR 1.06
[2025-02-25 03:53] LABS: Albumin 3.5 g/dL (3.4-5.0); Albumin/Globulin Ratio 1.0 (1.1-1.8); Alkaline Phosphatase 68 U/L (45-117); Anion Gap 9.0 mEq/L (5.0-15.0); BUN Blood Urea Nitrogen 15 mg/dL (7-18); Globulin 3.6 g/dL (2.3-3.5); Glucose Level 183 mg/dL (74-106); Magnesium 1.7 mg/dL (1.6-2.4); NT PRO-BNP 322 pg/mL (<125); Potassium 4.0 mEq/L (3.5-5.1); Thyroid Stimulating Hormone 2.790 uIU/mL (0.358-3.740); Troponin High Sensitivity 7.1 pg/mL (<58.9)
[2025-02-25 03:55] LABS: ALT/SGPT < 14 U/L (13-56); AST/SGOT < 10 U/L (15-37); Bilirubin Indirect, Calculated 0.0 mg/dL (0.2-0.8)
--- NOTE | 2025-02-25 06:54 | ER ---
Nurse's Notes [facility] Name: Anum Burr Age: 75 yrs Sex: Female : 1950 Arrival Date: 02/25/2025 Time: 02:10 Bed 20 Private MD: Diagnosis: Elevated blood pressure, Essential hypertension Presentation: 02/25 02:35 Chief complaint: Patient states: PT STATES AT APPROX 2200 PT HAD A HEADACHE, NAUSEA AND br2 TIGHTNESS TO THROAT. SHE CHECKED HER B/P AND IT WAS ELEVATED. PT TOOK OLMESARTAN 40MG AND AMLODIPE 10MG AT 2300 AND AT 2345. PT ARRIVES TO ER WITH NO PAIN. Coronavirus screen: Client denies travel out of the [place] in the last 14 days. Ebola Screen: Patient denies exposure to infectious person. Initial Sepsis Screen: Does the patient meet any 2 criteria? No. Patient's initial sepsis screen is negative. Does the patient have a suspected source of infection? No. Patient's initial sepsis screen is negative. Risk Assessment: Do you want to hurt yourself or someone else? Patient reports no desire to harm self or others. Onset of symptoms was February 24, 2025 at 22:00. 02:35 Method Of Arrival: Ambulatory br2 02:35 Acuity: SRINIVASA 3 br2 Triage Assessment: 02:41 General: Appears in no apparent distress. comfortable, Behavior is calm, cooperative. br2 Pain: Denies pain. Historical: - Allergies: 02:41 PENICILLINS; br2 - PMHx: 02:41 diabetes mellitus; Hypertensive disorder; Hypothyroidism; NEUROPATHY; Anxiety; br2 Hypercholesterolemia; - Immunization history:: Adult Immunizations up to date. - Infectious Disease History:: Denies. Denies. - Social history:: Smoking status: Patient denies any tobacco usage or history of. Patient/guardian denies using alcohol, street drugs. - Family history:: not pertinent. Screenin:10 [facility] ED Fall Risk Assessment (Adult) History of falling in the last 3 months, tb4 including since admission No falls in past 3 months (0 pts) Confusion or Disorientation No (0 pts) Intoxicated or Sedated No (0 pts) Impaired Gait No (0 pts) Mobility Assist Device Used No (0 pt) Altered Elimination No (0 pt) Score/Fall Risk Level 0 - 2 = Low Risk Oriented to surroundings, Maintained a safe environment. Abuse screen: Denies threats or abuse. Denies injuries from another. Nutritional screening: No deficits noted. Tuberculosis screening: No symptoms or risk factors identified. Assessment: 03:00 General: Appears in no apparent distress. Behavior is calm, cooperative. Neuro: Level tb4 of Consciousness is awake, alert, obeys commands, Oriented to person, place, time, situation, [employer] are equal bilaterally Moves all extremities. Full function Gait is steady, Patient was observed walking to restroom independent, with steady gait. Cardiovascular: Reports High blood pressure at home Capillary refill < 3 seconds is brisk in bilateral Patient's skin is warm and dry. Respiratory: Reports high blood pressure at home. GI: No signs and/or symptoms were reported involving the gastrointestinal system. :. Musculoskeletal: No signs and/or symptoms reported regarding the musculoskeletal system. Circulation, motion, and sensation intact. Range of motion: intact in all extremities. Vital Signs: 02:35 BP 158 / 57; Pulse 53; Resp 18; Temp 97.1; Pulse Ox 97% ; Height 4 ft. 9 in. ; Pain br2 0/10; 03:01 BP 177 / 57; Pulse 50; Resp 18; Pulse Ox 97% on R/A; Pain 0/10; tb4 04:00 BP 138 / 56; Pulse 51; Resp 17; Pulse Ox 97% on R/A; Pain 0/10; tb4 05:27 BP 118 / 49; Pulse 46; Resp 18; Temp 97.4(TE); Pulse Ox 97% on R/A; Pain 0/10; tb4 06:30 BP 109 / 50; Pulse 49; Resp 17; Pulse Ox 97% on R/A; Pain 0/10; tb4 02:35 Pain Scale: Adult br2 03:01 Pain Scale: Adult tb4 04:00 Pain Scale: Adult tb4 05:27 Pain Scale: Adult tb4 06:30 Pain Scale: Adult tb4 Negrita Coma Score: 19:43 Eye Response: spontaneous(4). Motor Response: obeys commands(6). Verbal Response: sp4 oriented(5). Total: 15. ED Course: 02:16 Patient arrived in ED. gm2 02:24 Bradley Garcia MD is Attending Physician. sp4 02:41 Triage completed. br2 02:41 Arm band placed on. br2 02:55 Inserted saline lock: 20 gauge in left antecubital area, using aseptic technique. Blood rv1 collected. Flushed with 10 mL NS. 02:56 Basic Metabolic Panel Sent. rv1 02:56 CBC with Diff Sent. rv1 02:56 LFT's Sent. rv1 02:56 Magnesium Sent. rv1 02:56 NT PRO-BNP Sent. rv1 02:56 PT-INR Sent. rv1 02:56 Troponin HS Sent. rv1 03:10 Patient has correct armband on for positive identification. Bed in low position. Call tb4 light in reach. Side rails up X 1. Client placed on continuous cardiac and pulse oximetry monitoring. NIBP monitoring applied. Pulse ox on. Door closed. 04:00 No provider procedures requiring assistance completed. tb4 07:09 IV discontinued, intact, bleeding controlled, No redness/swelling at site. Pressure tb4 dressing applied. 07:10 Provided Education on: Advised to follow up with primary care provider. tb4 Administered Medications: 03:51 Drug: cloNIDine PO 0.1 mg PO once Route: PO; tb4 04:09 Follow up: Response: No adverse reaction; Blood pressure is lowered tb4 Medication: 03:00 VIS not applicable for this client. tb4 Outcome: 06:54 Discharge ordered by . sp4 07:10 Discharged to home ambulatory, tb4 07:10 Condition: stable 07:10 Discharge instructions given to patient, Instructed on discharge instructions, follow up and referral plans. Demonstrated understanding of instructions, follow-up care, 07:11 Patient left the ED. tb4 Signatures: Lolis Savage rv1 Bradley Garcia MD MD sp4 Esperanza Hennessy gm2 Carolina Nascimento RN RN br2 Monica Virgen RN RN tb4
--- NOTE | 2025-02-25 06:54 | EDPHYS ---
Physician Documentation [facility] Name: Anum Burr Age: 75 yrs Sex: Female : 1950 Arrival Date: 02/25/2025 Time: 02:10 Bed 20 Private MD: ED Physician Bradley Garcia HPI: 02/25 02:24 This 75 yrs old Female presents to ER via Unassigned with complaints of High sp4 Blood Pressure. 19:42 Patient is a very pleasant 75-year-old female who presents with complaint of elevated sp4 blood pressure. Blood pressure at home reported to be 190/110. On presentation patient is hypertensive. Denied any other symptoms.. 19:43 At home patient takes losartan, carvedilol, and amlodipine. Patient states she is sp4 compliant with her medications.. Historical: - Allergies: 02:41 PENICILLINS; br2 - PMHx: 02:41 diabetes mellitus; Hypertensive disorder; Hypothyroidism; NEUROPATHY; Anxiety; br2 Hypercholesterolemia; - Immunization history:: Adult Immunizations up to date. - Infectious Disease History:: Denies. Denies. - Social history:: Smoking status: Patient denies any tobacco usage or history of. Patient/guardian denies using alcohol, street drugs. - Family history:: not pertinent. ROS: 19:43 Constitutional: Negative for fever, chills, and weight loss, positive for elevated sp4 blood pressure. 19:43 All other systems are negative, Exam: 19:43 Constitutional: This is a well developed, well nourished patient who is awake, alert, sp4 and in no acute distress. Head/Face: Normocephalic, atraumatic. Eyes: Pupils equal round and reactive to light, extra-ocular motions intact. Lids and lashes normal. Conjunctiva and sclera are not injected. Cornea within normal limits. Periorbital areas with no swelling, redness, or edema. ENT: Nares patent. No nasal discharge, no septal abnormalities noted. Tympanic membranes are normal and external auditory canals are clear. Oropharynx with no redness, swelling, or masses, exudates, or evidence of obstruction, uvula midline. Mucous membranes moist. Neck: Trachea midline, no thyromegaly or masses palpated, and no cervical lymphadenopathy. Supple, full range of motion without nuchal rigidity, or vertebral point tenderness. Chest/axilla: Normal chest wall appearance and motion. Nontender with no deformity. No lesions are appreciated. Cardiovascular: Regular rate and rhythm with a normal S1 and S2. No gallops, murmurs, or rubs. No pulse deficits. Respiratory: Lungs have equal breath sounds bilaterally, clear to auscultation and percussion. No rales, rhonchi or wheezes noted. No increased work of breathing, no retractions or nasal flaring. Abdomen/GI: Soft, with normal bowel sounds. No distension or tympany. No guarding or rebound. No evidence of tenderness throughout. Back: No spinal tenderness. No costovertebral tenderness. Skin: Warm, dry with normal turgor. Normal color with no rashes, no lesions, and no evidence of cellulitis. MS/ Extremity: Pulses equal, no cyanosis. Neurovascular intact. Full, normal range of motion. Neuro: Awake and alert, GCS 15, oriented to person, place, time, and situation. Cranial nerves II-XII grossly intact. Motor strength 5/5 in all extremities. Sensory grossly intact. Psych: Awake, alert, with orientation to person, place and time. Behavior, mood, and affect are within normal limits 19:43 ECG was reviewed by the Attending Physician. EKG at 0 242 sinus bradycardia rate 51 otherwise normal. Vital Signs: 02:35 BP 158 / 57; Pulse 53; Resp 18; Temp 97.1; Pulse Ox 97% ; Height 4 ft. 9 in. ; Pain br2 0/10; 03:01 BP 177 / 57; Pulse 50; Resp 18; Pulse Ox 97% on R/A; Pain 0/10; tb4 04:00 BP 138 / 56; Pulse 51; Resp 17; Pulse Ox 97% on R/A; Pain 0/10; tb4 05:27 BP 118 / 49; Pulse 46; Resp 18; Temp 97.4(TE); Pulse Ox 97% on R/A; Pain 0/10; tb4 06:30 BP 109 / 50; Pulse 49; Resp 17; Pulse Ox 97% on R/A; Pain 0/10; tb4 02:35 Pain Scale: Adult br2 03:01 Pain Scale: Adult tb4 04:00 Pain Scale: Adult tb4 05:27 Pain Scale: Adult tb4 06:30 Pain Scale: Adult tb4 Negrita Coma Score: 19:43 Eye Response: spontaneous(4). Motor Response: obeys commands(6). Verbal Response: sp4 oriented(5). Total: 15. MDM: 02:24 Medical Screening Exam initiated sp4 19:45 Differential diagnosis: hypertensive crisis, Malignant HTN, Uncontrolled hypertension. sp4 Data reviewed: vital signs, nurses notes, EMS record, lab test result(s), CBC, electrolytes, hepatic panel, EKG. Consideration of Admission/Observation Escalation of care including admission/observation considered. 02/25 02:24 Order name: Basic Metabolic Panel; Complete Time: 06:11 sp4 02/25 02:24 Order name: CBC with Diff; Complete Time: 06:11 sp4 02/25 02:24 Order name: LFT's; Complete Time: 06:11 sp4 02/25 02:24 Order name: Magnesium; Complete Time: 06:11 sp4 02/25 02:24 Order name: NT PRO-BNP; Complete Time: 06:11 sp4 02/25 02:24 Order name: PT-INR; Complete Time: 06:11 sp4 02/25 02:24 Order name: Troponin HS; Complete Time: 06:11 sp4 02/25 03:11 Order name: Thyroid Stimulating Hormone; Complete Time: 06:11 EDMS 02/25 02:24 Order name: Cardiac monitoring; Complete Time: 02:56 sp4 02/25 02:24 Order name: EKG - Nurse/Tech; Complete Time: 02:56 sp4 02/25 02:24 Order name: IV Saline Lock; Complete Time: 02:56 sp4 02/25 02:24 Order name: Labs collected and sent; Complete Time: 02:56 sp4 02/25 02:24 Order name: O2 Per Protocol; Complete Time: 02:56 sp4 02/25 02:24 Order name: O2 Sat Monitoring; Complete Time: 02:56 sp4 EC:42 Rate is 51 beats/min. Rhythm is regular, Sinus bradycardia. QRS [place] is Normal. [place] sp4 interval is normal. QRS interval is normal. QT interval is normal. No Q waves. T waves are Normal. No ST changes noted. Clinical impression: No evidence of ischemia. Interpreted by me. Reviewed by me. Administered Medications: 03:51 Drug: cloNIDine PO 0.1 mg PO once Route: PO; tb4 04:09 Follow up: Response: No adverse reaction; Blood pressure is lowered tb4 Disposition Summary: 02/25/25 06:54 Discharge Ordered Notes: Continue taking all blood pressure medications as prescribed Location: Home sp4 Problem: new sp4 Symptoms: have improved sp4 Condition: Stable sp4 Diagnosis - Elevated blood pressure, Essential hypertension sp4 Followup: sp4 - With: Private Physician - When: 7 - 10 days - Reason: Recheck today's complaints Discharge Instructions: - Discharge Summary Sheet sp4 - Hypertension, Adult, [id number] sp4 Forms: - Patient Portal Instructions sp4 Signatures: Dispatcher [employer] Bradley Cruz MD MD sp4 Carolina Nascimento RN RN br2 Monica Virgen RN RN tb4 Corrections: (The following items were deleted from the chart) 03:11 03:01 THYROID STIMULAT HORMONE+C.LAB.BRZ ordered. EDMS EDMS
[2025-02-25 13:47] VITALS: TEMP 97.2; O2SAT 100
[2025-02-25 13:55] VITALS: BP 122/81
== END 2025-02-25 07:11 | disposition home or self-care (01) ==
LOC: ER 02:10
DX: I10 Essential (primary) hypertension (principal); E11.40 Type 2 diabetes mellitus with diabetic neuropathy, unspecified; E78.00 Pure hypercholesterolemia, unspecified; Z88.0 Allergy status to penicillin
CPT/HCPCS: 36415; 80048; 80076; 83735; 83880; 84443; 84484; 85025; 85610; 93005; 99284